=== PATIENT | male | born 1950 | race Caucasian/White ===

== ENCOUNTER 2022-08-16 05:32 | Outpatient (CLI) | payer MEDICARE, OTHER ==
[~2022-08-16] VITALS: Ht 172.7 cm; Wt 104.6 kg
[2022-08-16] MEDS ORDERED: LISI1TAB44 PO (11:03)
[2022-08-16] MEDS ORDERED: TR025C15 TP (11:03)
[2022-08-16] MEDS ORDERED: IBUP200C11 PO (11:03)
== END 2022-08-16 12:13 | disposition home or self-care (01) ==
LOC: PREOP 05:32
PROVIDERS: ATTEND Podiatrist Foot & Ankle Surgery
DX: Z01.818 Encounter for other preprocedural examination (principal)

== ENCOUNTER 2022-08-23 08:01 | Day surgery (SDC) | payer MEDICARE, OTHER ==
[2022-08-23] VITALS (12 sets, daily range): BP systolic 125–165; BP diastolic 74–91
[~2022-08-23] VITALS: Ht 172.7 cm; Wt 104.6 kg
[~2022-08-23 08:01] MED LIST: IBUP200C11 PO; LISI1TAB44 PO; TR025C15 TP
[2022-08-23] MEDS ORDERED: ceFAZolin INJECTION 1,000 MG in NS (IVPB) 50 ML IV ONE (08:45)
[2022-08-23] MEDS ORDERED: LACTATED RINGERS 1,000 ML IV PRN (08:45)
[2022-08-23] MEDS ORDERED: BUPIVACAINE 0.5% 30 ML (SENSORCAINE) VIAL ONE (08:48)
[2022-08-23] MEDS ORDERED: LIDOCAINE 1% INJ 20 ML VIAL ONE (08:48)
--- NOTE | 2022-08-23 09:15 | Progress Note-Post Operative ---
Post-Operative Progess Note Surgeon (s)/Skein Drier (s) Surgeon YADY LOCO DPM Skein Drier: none Pre-Operative Diagnosis HALLUX VALGUS, TAYLORS BUNION, 2ND HAMMERTOE, RIGHT Post-Operative Diagnosis same Procedure & Operative Findings Date of Procedure 08/23/22 Procedure Performed/Findings Kevin bunionectomy, right foot Anesthesia Type General Estimated Blood Loss Estimated blood loss (mL): Minimal Specimens/Packing Specimens Removed none YADY LOCO DPM Aug 23, 2022 09:15
[2022-08-23] MEDS ORDERED: LIDOCAINE PF 2% 5 ML (XYLOCAINE) VIAL ONE (09:22)
[2022-08-23] MEDS ORDERED: fentaNYL INJ 100 MCG/2 ML AMP ONE (09:22)
[2022-08-23] MEDS ORDERED: proPOfol 200 MG/20 ML (DIPRIVAN) VIAL IV ONE (09:22)
[2022-08-23] MEDS ORDERED: MIDAZOLAM 2 MG/2 ML (VERSED) VIAL ONE (09:22)
[2022-08-23] MEDS ORDERED: ONDANSETRON 4 MG/2 ML (SDV) Z0FRAN ONE (09:22)
[2022-08-23] MEDS ORDERED: SEVOFLURANE (ULTANE) 15 ML INHAL SOLN ONE ×2 (09:22→11:53)
--- NOTE | 2022-08-23 09:44 | Progress Note-Pre Operative ---
Pre-Operative Progress Note Date of Available H&P: Aug 23, 2022 Date H&P Reviewed: Aug 23, 2022 Time H&P Reviewed: 09:43 Changes from last HP none Pre-Operative Diagnosis: Hallux Abducto Valgus, 2nd Hammertoe, Bunrafaeltte, right YADY LOCO DPM Aug 23, 2022 09:44
--- NOTE | 2022-08-23 11:59 | Progress Note-Post Operative ---
Post-Operative Progess Note Surgeon (s)/Industrial Safety And Health Technician (s) Surgeon YADY LOCO DPM Industrial Safety And Health Technician: none Pre-Operative Diagnosis Hallux Abducto Valgus, 2nd Hammertoe, Bunionette, right Post-Operative Diagnosis Same plus hypertrophic 2nd metatarsal Procedure & Operative Findings Date of Procedure 08/23/22 Procedure Performed/Findings Brennon-Kevin bunionectomy, Tailor's bunionectomy, 2nd metatarsal osteotomy, reduction of 2nd hammertoe, right foot Anesthesia Type general Estimated Blood Loss Estimated blood loss (mL): minimal Specimens/Packing Specimens Removed none YADY LOCO DPM Aug 23, 2022 11:59
[2022-08-23] MEDS ORDERED: ONDANSETRON 4 MG/2 ML (SDV) Z0FRAN IVP PRN (12:00)
[2022-08-23] MEDS ORDERED: LACTATED RINGERS 1,000 ML IV SCH (12:00)
[2022-08-23] MEDS ORDERED: HYDROcodone/APAP 5 MG/325 MG (LORTAB) TAB PO PRN (12:00)
[2022-08-23] MEDS ORDERED: fentaNYL INJ 100 MCG/2 ML AMP IVP ONE (12:00)
--- NOTE | 2022-08-23 12:00 | Anesthesia-General Post-Op ---
General Patient Condition Mental Status/LOC: Same as Preop Cardiovascular: Satisfactory Nausea/Vomiting: Absent Respiratory: Satisfactory Pain: Controlled Complications: Absent Post Op Complications Complications None Follow Up Care/Instructions Patient Instructions None needed. Anesthesia/Patient Condition Patient Condition Patient is doing well, no complaints, stable vital signs, no apparent adverse anesthesia problems. No complications reported per nursing. TRINI ABDI CRNA Aug 23, 2022 12:00
[2022-08-23] MEDS ORDERED: ACHD5005 PO (12:06)
[2022-08-23] MEDS ORDERED: CEPH500C PO (12:06)
--- NOTE | 2022-08-23 14:03 | Physical Therapy Ortho Eval ---
PT Orthopedic Evaluation Type of Surgery Prior Level of Function Current Living Status: Spouse Locomotion (Upon Admit): Independent Established Durable Medical Eq: Front Wheeled Walker, Crutches Knee Scooter Subjective Subjective Patient lying supine in bed upon PT arrival, in the room, patient agreeable to treatment. Patient rates pain currently at 0/10. Entry Into Home: Stairs Without Railing Steps Into Home: 1 Steps Accessories: No Railing Motor Control Motor Control: Motor Control WNL ROM ROM: WFL, except focal deficit Strength Strength: Gen Weak,No Focal Deficit Transfer SCALE: Activities may be completed with or without assistive devices. 7-Qbyvxsaizv-hxcbyqe completes the activity by him/herself with no assistance from a helper. 5-Set-up or Clean-up Assistance-helper sets up or cleans up; patient completes activity. [place] assists only prior to or following the activity. 4-Supervision or Touching Assistance-helper provides verbal cues and/or touching/steadying and/or contact guard assistance as patient completes activity. Assistance may be provided throughout the activity or intermittently. 3-Partial/Moderate Assistance-helper does LESS THAN HALF the effort. [place] lifts, holds or supports trunk or limbs, but provides less than half the effort. 2-Substantial/Maximal Assistance-helper does MORE THAN HALF the effort. [place] lifts or holds trunk or limbs and provides more than half the effort. 5-Kgvwqigol-mtdhpl does ALL the effort. Patient does none of the effort to complete the activity. Or, the assistance of 2 or more helpers is required for the patient to complete the activity. If activity was not attempted, code reason: 7-Patient Refused. 9-Not Applicable-not attempted and the patient did not perform the activity before the current illness, exacerbation or injury. 10-Not Attempted due to Environmental Limitations-(lack of equipment, weather restraints, etc.). 88-Not Attempted due to Medical Conditions or Safety Concerns. Transfers (B, C, W/C) (QC): 4 Gait Gait Assistive Device: FWW Right Lower Extremity: Right Weight Bearing Status RLE: Non Weight Bearing Left Lower Extremity: Left Weight Bearing Status LLE: Full Weight Bearing Gait (QC): 4 Distance: 30 feet Summary/Comments Patient was given verbal instruction regarding NWB right LE. Patient appeared to place weight through his right Heel during gait and steps. Patient again given verbal instruction post gait training to ensure understanding. Stairs #of Steps: 1 Walking Assistive Device: Walker Treatment Rendered Treatment: Gait Train, Step Train Assessment/Goals Goal Time Frame: 1 Visit Safe Ambulation: Yes Plan Treatment Plan: Discharge PT/Family Agrees to Plan: Yes Time Time In: 1336 Time Out: 1348 Total Billed Treatment Time: 12 Billed Treatment Time Visit, ELODIA SALEH PT Aug 23, 2022 14:03
--- NOTE | 2022-08-23 17:21 | Diagnostic Imaging Report ---
INDICATION: Right foot pain 2 views of the right foot show postoperative changes from osteotomy of the head of the proximal phalanx of the 2nd toe with pinning of the 3 phalanges. There are postoperative changes from osteotomy and pinning of the head of the 1st metatarsal. Patient has had osteotomy with pinning of the head of the 5th metatarsal. IMPRESSION: Postoperative changes from bunion repair surgery. Bones appear to be transfixed in good alignment. Dictated by: Dictated on workstation # [id number]
--- NOTE | 2022-08-23 19:33 | OPERATIVE REPORT ---
DATE OF SERVICE: 08/23/2022 SURGEON: Yady Loco DPM PREOPERATIVE DIAGNOSES: 1. Hallux abductovalgus with metatarsus primus varus, right. 2. Tailor's bunion, right. 3. Hypertrophic second metatarsal, right. 4. Hammer digit syndrome, right second digit. POSTOPERATIVE DIAGNOSES: 1. Hallux abductovalgus with metatarsus primus varus, right. 2. Tailor's bunion, right. 3. Hypertrophic second metatarsal, right. 4. Hammer digit syndrome, right second digit. PROCEDURES PERFORMED: 1. Modified Brennon Kevin bunionectomy, right foot. 2. Tailor's bunionectomy, right foot. 3. Second metatarsal osteotomy, right foot. 4. Reduction of hammertoe, right second digit. WOUND CLASS: Clean. ANESTHESIA: General. HEMOSTASIS: Pneumatic thigh tourniquet at 300 mmHg. INDICATIONS: This is a 71-year-old male who presents complaining of painful right foot. Conservative therapy is met with unsatisfactory results and the patient is agreeable to surgical intervention after risks and complications were discussed at length. No guarantees were extended to the patient and he is willing to proceed. DESCRIPTION OF PROCEDURE: The patient was brought back to the operating table and placed in secure supine position. Appropriate timeout was performed. A 10 mL of 1:1 mixture of 1% Xylocaine and 0.5% Marcaine was injected in a local infusion to the surgical sites in a Miranda and reverse Miranda injection as well as a digital block to the right second toe. A pneumatic thigh tourniquet was placed on the right lower extremity over several layers of padding. This was done after appropriate general anesthetic was induced. The right foot was then prepped and draped in normal sterile manner. The right foot was then elevated allowed to exsanguinate after which the tourniquet was inflated to 300 mmHg. Attention was then directed to the dorsal aspect of the right first metatarsophalangeal joint where a 6 cm longitudinal linear incision was created. The incision was deepened in the same plane with great care to identify and retract all vital neurovascular structures. Only necessary blood vessels were cauterized as encountered. The incision was deepened down to the capsular tissue where a longitudinal capsulotomy was performed. The medial eminence to the first metatarsal head was resected utilizing a power sagittal saw as well as the dorsal eminence to the first metatarsal head. Blunt dissection was carried out into the first intermetatarsal space where a lateral release was performed. The conjoined tendon of the adductor hallucis was released as well as a lateral capsulorrhaphy and release of the fibular sesamoidal ligament. The hallux was then forcibly adducted releasing any additional fibers holding in its abnormal position. Attention was redirected to the medial aspect of the first metatarsal where a [employer] type osteotomy was performed allowing the capital fragment to translocate laterally. Utilizing a 0.062 K-wire and driven it from dorsal proximal to plantar distal. The osteotomy was secured in its corrected position. The K-wire was cut flush with the dorsal aspect of the first metatarsal. The first metatarsal was further contoured and smoothed utilizing a power sagittal saw and a power bur. Next, attention was then directed to the proximal phalanx of the right hallux where an Kevin type osteotomy was performed. Subperiosteal dissection was carried out to the mid diaphysis of the proximal phalanx, after which a wedge of bone was resected. The base was medial and lateral cortices held intact. Once the wedge of bone was resected, the gap closed. There was good reduction of the hallux valgus component. Two spray pilot holes were created at the dorsal medial aspect of the osteotomy, after which a 28-gauge monofilament wire was passed through the spray pilot holes securing the osteotomy in a closed position. The wound was flushed with copious amounts of normal saline. Closure was then performed in layers. Deep closure was performed with 3-0 Vicryl and superficial closure with 4-0 Vicryl and skin closure with 4-0 Prolene in a horizontal mattress type stitch. Attention was then directed to the dorsal aspect of the right second ray where an incision was created from the metatarsophalangeal joint to the distal interphalangeal joint of the toe. The incision was deepened in the same plane with great care to identify and retract all vital neurovascular structures. The incision was deepened down to the extensor tendon where slide lengthening was performed overlying the proximal phalanx. The extensor tendon was reflected proximally and the extensor rodriguez released overlying the metatarsophalangeal joint. A dorsal capsulorrhaphy and release of the medial and lateral collateral ligaments at the metatarsophalangeal joint was performed. This allowed for the proximal phalanx to come down into more rectus alignment; however, it did not come all the way down. After evaluating the x-rays. At this juncture, it was then determined that the hypertrophic second metatarsal head to allow for better range of motion of the second metatarsophalangeal joint and allow for less pressure to be applied to the second metatarsal head, especially after there was some shortening of the first ray with the bunionectomy. Utilizing a power sagittal saw, a Orion L-type osteotomy was performed with a sagittal saw plane of what would be the weightbearing surface for the patient. This began just inferior to the dorsal aspect of the articular cartilage of the second metatarsal head and extended proximally, allowing the capital fragment to translocate proximally and medially. It was fixated in its corrected position utilizing a 2.0 snap-off screw of 14 mm of length. Excellent bony apposition and fixation was appreciated this time. The excess bone to the second metatarsal head was resected with a rongeur and followed by a bone rasp. Attention was redirected to the right second toe proximal phalanx where a peg-in-hole type arthrodesis was performed to the proximal interphalangeal joint area. A power sagittal saw. A power bur was utilized to create the PEG at the head of the proximal phalanx and a hole was created with a power bur to the base of the middle phalanx. Next, a 0.054 smooth K-wire was driven down the toe securing the osteotomy in can securing the right second toe in a rectus alignment. The excess K-wire was cut at the distal aspect of the toe and a protective ball placed over the end of the wire. The wound was flushed with copious amounts of normal saline throughout the procedure and closure was performed in layers. Deep closure was performed with 3-0 Vicryl, superficial with 4-0 Vicryl, skin closed with 4-0 Prolene in a horizontal mattress type stitch. Attention was then directed to the dorsal lateral aspect of the right fifth metatarsophalangeal joint where a 4 cm longitudinal linear incision was created. The incision was deepened in the same plane with great care to identify and retract all vital neurovascular structures. The incision was deepened down to the capsular tissue where a longitudinal capsulotomy was performed. The hypertrophic lateral eminence of the fifth metatarsal was resected. Utilizing a power sagittal saw, a Chevron type osteotomy was performed just proximal to the fifth metatarsal head, allowing the capital fragment to translocate medially and was fixated in its corrected position utilizing a threaded 0.054 K-wire and driven it from dorsal proximal to plantar distal across the osteotomy. Excellent bony apposition and fixation was appreciated this time. The K-wire was cut to the dorsal aspect of the fifth metatarsal, after which the fifth metatarsal head was further contoured and smoothed with a power sagittal saw and power bur. The wound was flushed with copious amounts of normal saline and closure was then performed in layers. Deep closure was performed with 3-0 Vicryl, superficial with 4-0 Vicryl, skin closed with 4-0 Prolene in a horizontal mattress type stitch. Attention was directed to the right foot after the tourniquet was released, noting appropriate cap refill time to all digits of the right lower extremity. Postoperative injection consisted of 20 mL of 0.5% Marcaine plain injected in a local infusion to the surgical sites. Postoperative dressing consisted of Betadine-soaked Adaptic, sterile 4 x 4's, sterile Kerlix all secured with a Coban wrap. The patient tolerated the anesthesia and procedure well and was transported from the operating room to the recovery room with vital signs stable and vascular status intact to all digits of the right foot. He is to be nonweightbearing on the right lower extremity and follow up in my office in 10 days. time or sooner if necessary. Job ID: [id number] DocumentID: [id number] Dictated Date: 08/23/2022 12:18:25 Fire Protection Engineering Technician Date: 08/23/2022 19:30:00 Dictated By: YADY LOCO DPM
== END 2022-08-23 14:20 | disposition home or self-care (01) ==
LOC: SDC 08:01
PROVIDERS: ATTEND Podiatrist Foot & Ankle Surgery
DX: M20.11 Hallux valgus (acquired), right foot (principal); M21.621 Bunionette of right foot; M89.371 Hypertrophy of bone, right ankle and foot; M20.41 Other hammer toe(s) (acquired), right foot
CPT/HCPCS: 28285; 28299; 28308 ×2; 73620; 87081; 93005; 97162; C1713 ×2